=== PATIENT | male | born 1945 | race Caucasian/White ===

== ENCOUNTER → 2017-11-19 | Day surgery (SDC) | payer MEDICARE ==
[~2017-11-19] MED LIST: AMLO10; ASPI81TA82 PO; BUPIVACAINE/EPINEPHRINE 0.25% 50 ML VIAL INFIL ONE; CO Q100C9 PO; GABA100C4 PO; LACTATED RINGER'S 1000 ML INJ 1,000 ML ONE; LANTUSP SQ; LISI-363 PO; MIDAZOLAM HCL 2 MG/2 ML VIAL ONE; NOVOLOGP2 SC; PROPOFOL 200 MG/20 ML AMP IV ONE; SIMV40TA PO; SODIUM CHLORIDE 0.9% 20 ML VIAL ONE; TAB-TAB PO; VICT18IN; ceFAZolin 2 GM PREMIX 50 ML ONE
--- NOTE | 2017-11-19 20:37 | MP ---
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 PROCEDURE 1. Left subclavian vein Fjgnvs-R-[id number] placement. 2. Intraoperative interpretation of fluoroscopic images by . ATTENDING SURGEON: Nusrat Streeter MD. INSPECTOR CIRCUITRY NEGATIVE: Staff ANESTHESIA Local and TIVA. BLOOD LOSS: 20 cc COMPLICATIONS: None. FINDINGS Tip in the atriocaval junction with port aspirating blood and flushed with heparinized saline easily. INDICATIONS FOR PROCEDURE: The patient is a 72 year-old male recently diagnosed with adenocarcinoma of the head of the pancreas involving the superior mesenteric vein and portal veins, concerning for borderline resectability. There is also a large tumor. The patient was recommended to undergo neoadjuvant chemotherapy and radiation followed by consideration of surgery. The patient needs Nkjhtg-[id number] for continued treatment for his disease. The risks, benefits and alternatives to Jozuaa-U-Lwkg placement were discussed with the patient and his prior to the procedure. They agreed to undergo the procedure. DESCRIPTION OF PROCEDURE: The patient was taken to the operating room placed in supine position and placed under TIVA. The patient's bilateral chest and neck were prepped and draped in sterile fashion. Time-out was performed. The left subclavian vein was accessed on first attempt with the 18 gauge needle after the area was anesthetized with local anesthetic. A wire was passed without difficulty and was confirmed to be in the venous system on fluoroscopy. We then extended the stick site into a 2.5 cm horizontal skin incision with a 15 blade scalpel. We used the Bovie electrocautery as well as blunt dissection to make a subcutaneous pocket and to free up the wire into the incision. We then used a breakaway dilator and introducer, to introduce the catheter into the venous system without difficulty. This did pass across the right-sided venous system and into the right arm. As we attempted to pull the catheter back to redirect it down into the superior vena cava, the catheter tip had come out of the tract. We were unable to advance this so we did re-access the left subclavian vein a second time with the 18 gauge needle, passed the wire again without difficulty and advance the catheter over the wire without difficulty. This was confirmed that the tip was in the atriocaval junction. This was cut to custom size for the patient, assembled, and placed into the pocket without difficulty. We aspirated this with a Cid needle and blood returned readily and we flushed it with heparinized saline. At this point in time, again we confirmed fluoroscopy that the tip was in good position. There was no kinking. We closed the port site with 3-0 Vicryl and 4-0 Monocryl and Dermabond. The patient was discontinued from TIVA, anesthetic, and brought to the Recovery Room in stable condition. The patient tolerated the procedure well. No apparent complications. All counts were correct. I was present and scrubbed for the entire procedure. MD CRISTINE Branch/CINTHIA /11:41 AM /7:59 PM
== END | disposition home or self-care (01) ==
LOC: ESDC 08:45
PROVIDERS: ATTEND Surgery
DX: Z45.2 Encounter for adjustment and management of vascular access device (principal); C25.0 Malignant neoplasm of head of pancreas; E11.9 Type 2 diabetes mellitus without complications; Z79.4 Long term (current) use of insulin
CPT/HCPCS: 00532; 36561; 76000; 77001; 82948; C1788; J0690; J2250; J3010; J7120

== ENCOUNTER 2017-11-26 00:02 | Emergency (ER) | payer MEDICARE ==
[~2017-11-26] VITALS: Ht 182.9 cm; Wt 100.0 kg
[~2017-11-26 00:02] MED LIST changes: -BUPIVACAINE/EPINEPHRINE 0.25% 50 ML VIAL INFIL ONE; -LACTATED RINGER'S 1000 ML INJ 1,000 ML ONE; -MIDAZOLAM HCL 2 MG/2 ML VIAL ONE; -PROPOFOL 200 MG/20 ML AMP IV ONE; -SODIUM CHLORIDE 0.9% 20 ML VIAL ONE; -ceFAZolin 2 GM PREMIX 50 ML ONE
[2017-11-26 00:04] VITALS: BP 146/62; PULSE 90; RESP 16; TEMP 100.7; O2SAT 96
--- NOTE | 2017-11-26 00:49 | RADRPT ---
EXAM DATE/TIME: 11/26/2017 00:37 [facility] COMPARISON: No previous studies available for comparison. INDICATIONS : Fever. MEDICAL HISTORY : Carcinoma, pancreas. SURGICAL HISTORY : Port placement. ENCOUNTER: Initial ACUITY: 1 day PAIN SCORE: 0/10 LOCATION: Bilateral chest FINDINGS: A single view of the chest demonstrates the lungs to be symmetrically aerated without evidence of mas s, infiltrate or effusion. There is a right subclavian implantable port catheter in place. Mild athe rosclerotic calcifications are present in the aorta. The cardiomediastinal contours are unremarkable. Osseous structures are intact. CONCLUSION: No acute disease. There is no evidence of pneumonia. Vinny Sofia MD on November 26, 2017 at 0:47 Board Certified Radiologist. This report was verified electronically.
--- NOTE | 2017-11-26 00:51 | PD ---
HPI Chief Complaint: Fever Time Seen by Provider: 00:21 Travel History International Travel<30 days: No Contact w/Intl Traveler<30days: No Traveled to known affect area: No History of Present Illness HPI The patient is a 72 year old male who presents to the [facility] emergency department with a history of recently diagnosed pancreatic cancer a couple of weeks ago. The patient is currently being followed by for his oncology care. The patient reports that last Saturday he had an Tkdygk-d-Gtej placed in the left side of his chest, and started chemotherapy for the first time on Saturday. He reports that today began to have a fever with a T-max of 101.5. He denies having any other symptoms associated with this. He denies having cough, congestion, rhinorrhea, sore throat, vomiting, or diarrhea. The patient reports that he had been constipated for the last week. He reports that he was able to move his bowels today after using 2 fleets enemas yesterday and drinking magnesium citrate today. He denies having any dysuria, urinary frequency, or urinary urgency. He reports that his urine has been darker in color. Review of systems otherwise, the patient denies having neck pain, abdominal pain, or neurologic symptoms. The patient incidentally on review of systems reports that he did have chest pain for 20-30 minutes earlier today. He describes feeling anxious and feeling like he was having an anxiety attack. He reports that he had a squeezing/pressure sensation in the center of his chest associated with shortness of breath. He denies having any prior history of cardiac disease. [facility] Past Medical History Narrative Medical The patient's past medical history is significant for a recent diagnosis of pancreatic cancer, hyperlipidemia, hypertension, diabetes mellitus, chronic kidney disease, acid reflux, chronic back pain. Hx Anticoagulant Therapy: Yes (81MG ASA DAILY) Cancer: Yes (Pancreatic) High Cholesterol: Yes Diabetes: Yes (Insulin) Patient Takes Glucophage: No Diminished Hearing: No Hypertension: Yes Implanted Vascular Access Dvce: Yes (L chest port) Neurologic: Yes (NEUROPATHY) Tetanus Vaccination: < 5 Years Influenza Vaccination: No Past Surgical History Narrative Surgical The patient's past surgical history is significant for a tonsillectomy, Infuse-a -Port placement on the left side, left trapezius injection for pain, thyroid surgery, left knee arthroscopy, colonoscopy, and colonoscopy. Tonsillectomy: Yes Social History Alcohol Use: No Tobacco Use: No Substance Use: No Allergies-Medications (Allergen,Severity, Reaction): Coded Allergies: No Known Allergies (Unverified , 06/01/15) Reported Meds & Prescriptions Reported Meds & Active Scripts Active Levaquin (Levofloxacin) 500 Mg Tablet 500 Mg PO DAILY 7 Days Reported Co Q 10 (Coenzyme Q10) 100 Mg Cap 200 Mg PO DAILY Gabapentin 100 Mg Cap 100 Mg PO BID Norvasc (Amlodipine Besylate) 10 Mg Tab Victoza 18 mg/3 ml Multi-Dose Pen (Liraglutide 18 mg/3 ml Multi-Dose Pen) 18 Mg/3 Ml Inj 1.8 Mg DAILY Multivitamin (Multivitamins) 1 Tab Tab 1 Tab PO DAILY Aspir-81 (Aspirin) 81 Mg Tab 81 Mg PO DAILY Novolog (Insulin Aspart) 100 Units/Ml Inj 30 Units SC TIDAC Lantus (Insulin Glargine) 100 Units/Ml Inj 70 Units SQ HS Simvastatin 40 Mg Tab 20 Mg PO HS Lisinopril 20 mg (Lisinopril) 20 Mg Tab 20 Mg PO DAILY Review of Systems Except as stated in HPI: all other systems reviewed are Neg General / Constitutional: No: Fever Eyes: No: Visual changes HENT: No: Headaches Cardiovascular: No: Chest Pain or Discomfort Respiratory: No: Shortness of Breath Gastrointestinal: No: Abdominal Pain Genitourinary: No: Dysuria Musculoskeletal: No: Pain Skin: No Rash Neurologic: No: Weakness Psychiatric: No: Depression Endocrine: No: Polydipsia Hematologic/Lymphatic: No: Easy Bruising Physical Exam Narrative General: The patient is a well-developed well-nourished male in no acute distress. Head and Neck exam: Head is normocephalic atraumatic. Eyes: EOMI, pupils are equal round and reactive to light. Nose: Midline septum with pink mucous membranes Mouth: Dentition unremarkable. Moist mucus membranes. Posterior oropharynx is not erythematous. No tonsillar hypertrophy. Uvula midline. Airway patent. Neck: No palpable lymphadenopathy. No nuchal rigidity. No thyromegaly. Cardiovascular: Regular rate and rhythm without murmurs, gallops, or rubs. No pulse deficit to the extremities. Lungs: Clear to auscultation bilaterally. No wheezes, rhonchi, or rales. Abdomen: Soft, without tenderness to palpation in all 4 quadrants of the abdomen. No guarding, rebound, or rigidity. Normal bowel sounds are audible. No tenderness on palpation of McBurney's point. Negative Augustin sign. Extremities: No clubbing, cyanosis, or edema. 2+ pulses in all 4 extremities. No calf tenderness on palpation. Back: No spinous process tenderness to palpation. Left-sided CVA tenderness on palpation. No tenderness on palpation of the right CVA area. Neurologic Exam: Grossly nonfocal. Skin Exam: No rash noted. Intact skin that is warm and dry. Data Data Last Documented VS Vital Signs Date Time Temp Pulse Resp B/P (MAP) Pulse Ox O2 Delivery O2 Flow Rate FiO2 11/26/17 04:24 87 16 137/65 (89) 96 Room Air 11/26/17 00:04 100.7 Orders Orders Electrocardiogram (11/26/17:) Complete Blood Count With Diff (11/26/17) Comprehensive Metabolic Panel (11/26/17) Creatine Kinase (Cpk) (11/26/17) Ckmb (Isoenzyme) Profile (11/26/17) Troponin I (11/26/17) B-Type Natriuretic Peptide (11/26/17) Prothrombin Time / Inr (Pt) (11/26/17) Act Partial Throm Time (Ptt) (11/26/17) Blood Culture (11/26/17:) Lipase (11/26/17:) Urinalysis - C+S If Indicated (11/26/17) Magnesium (Mg) (11/26/17) Influenzae A/B Antigen (11/26/17:) Chest, Single Ap (11/26/17:) Iv Access Insert/Monitor (11/26/17) Ecg Monitoring (11/26/17) Oximetry (11/26/17) Sodium Chlor 0.9% 1000 Ml Inj (Ns 1000 M (11/26/17 01:00) Acetaminophen (Tylenol) (11/26/17 01:00) Lactic Acid Sepsis Protocol (11/26/17 01:34) Cefepime Inj (Maxipime Inj) (11/26/17 01:45) Vancomycin Inj (Vancomycin Inj) (11/26/17 01:45) Sodium Chlor 0.9% 1000 Ml Inj (Ns 1000 M (11/26/17 03:00) Labs Laboratory Tests Test 11/26/17 01:00 11/26/17 01:54 11/26/17 03:42 White Blood Count 13.7 TH/MM3 Red Blood Count 4.37 MIL/MM3 Hemoglobin 12.2 GM/DL Hematocrit 35.6 % Mean Corpuscular Volume 81.5 FL Mean Corpuscular Hemoglobin 27.9 PG Mean Corpuscular Hemoglobin Concent 34.3 % Red Cell Distribution Width 13.0 % Platelet Count 143 TH/MM3 Mean Platelet Volume 9.8 FL Neutrophils (%) (Auto) 88.9 % Lymphocytes (%) (Auto) 8.6 % Monocytes (%) (Auto) 0.8 % Eosinophils (%) (Auto) 1.3 % Basophils (%) (Auto) 0.4 % Neutrophils # (Auto) 12.1 TH/MM3 Lymphocytes # (Auto) 1.2 TH/MM3 Monocytes # (Auto) 0.1 TH/MM3 Eosinophils # (Auto) 0.2 TH/MM3 Basophils # (Auto) 0.1 TH/MM3 CBC Comment DIFF FINAL Differential Comment Prothrombin Time 10.5 SEC Prothromb Time International Ratio 1.0 RATIO Activated Partial Thromboplast Time 24.9 SEC Blood Urea Nitrogen 28 MG/DL Creatinine 1.56 MG/DL Random Glucose 163 MG/DL Total Protein 6.9 GM/DL Albumin 2.9 GM/DL Calcium Level 8.1 MG/DL Magnesium Level 2.3 MG/DL Alkaline Phosphatase 68 U/L Aspartate Amino Transf (AST/SGOT) 23 U/L Alanine Aminotransferase (ALT/SGPT) 27 U/L Total Bilirubin 0.7 MG/DL Sodium Level 135 MEQ/L Potassium Level 3.8 MEQ/L Chloride Level 100 MEQ/L Carbon Dioxide Level 28.2 MEQ/L Anion Gap 7 MEQ/L Estimat Glomerular Filtration Rate 44 ML/MIN Total Creatine Kinase 74 U/L Troponin I LESS THAN 0.02 NG/ML B-Type Natriuretic Peptide 86 PG/ML Lipase 438 U/L Lactic Acid Level 0.8 mmol/L Urine Color YELLOW Urine Turbidity HAZY Urine pH 6.0 Urine Specific [place] 1.019 Urine Protein 300 mg/dL Urine Glucose (UA) TRACE mg/dL Urine Ketones 10 mg/dL Urine Occult Blood SMALL Urine Nitrite NEG Urine Bilirubin NEG Urine Urobilinogen LESS THAN 2.0 MG/DL Urine Leukocyte Esterase NEG Urine RBC 3 /hpf Urine WBC 4 /hpf Urine Squamous Epithelial Cells <1 /hpf Urine Amorphous Sediment RARE Urine Bacteria RARE /hpf Urine Hyaline Casts 4 /lpf Urine Granular Casts 34 /lpf Urine Mucus FEW /lpf Microscopic Urinalysis Comment CULT NOT INDICATED MDM Medical Decision Making Medical Screen Exam Complete: Yes Emergency Medical Condition: Yes Medical Record Reviewed: Yes Interpretation(s) Last Impressions Chest X-Ray 11/26/17 0027 Signed Impressions: Service Date/Time: Sunday, November 26, 2017 00:37 - CONCLUSION: No acute disease. There is no evidence of pneumonia. Vinny Sofia MD Differential Diagnosis Pyelonephritis, versus musculoskeletal strain, versus viral syndrome, versus influenza, versus pneumonia, versus prostatitis, versus bacteremia, versus sepsis, versus neutropenic fever Narrative Course During the course of the patient's emergency department visit, the patient's history, examination, and differential diagnosis were reviewed with the patient. The patient was placed on a communications marketing intern with oximetry and frequent blood pressure monitoring. The patient had IV access obtained and blood work sent for analysis. The patient had an EKG done on arrival that shows a sinus rhythm with a sinus arrhythmia, left anterior fascicular block, QRS duration is 114 ms, QTC [address] segment elevation is noted. T waves are noted to be inverted in aVL. The patient was initially provided normal saline 1 L IV fluid bolus. Tylenol 650 p.o. 1 for fever. The patient's laboratory studies were reviewed and remarkable for a white count of 13.7, hemoglobin 12.2, platelets 143 with 88.9 neutrophils, lymphocytes 8.6. CMP is remarkable for a sodium of 135, BUN 28, creatinine 1.56, glucose 163, calcium 8.1, cardiac enzymes within normal limits, BMP 86, lipase 438, lactic acid 0.8, PT 10.5, PTT 24.9, urinalysis shows 300 protein 10 ketones small occult blood, 3 RBCs, culture not indicated. Radiology studies were reviewed and remarkable for a chest x-ray that shows no acute cardiopulmonary disease, no evidence of pneumonia. The patient's case was discussed with the covering oncologist for this patient' s oncologist. The patient's case including history, pertinent physical examination findings, and laboratory studies were discussed with Dr. Llamas. He agreed that the patient could be discharged home on Levaquin with close follow-up with his oncologist, Dr. Todd. The patient is resting comfortably and feels better, is alert and in no distress. The patient's results and examination findings were discussed with the patient. The repeat examination is unremarkable and benign. The history, exam, diagnostic testing, and current condition do not suggest any significant pathology to warrant further testing, continued ED treatment, admission, or surgical evaluation at this point. The vital signs have been stable. The patient does not have uncontrollable pain, intractable vomiting, or other significant symptoms. The patient's condition is stable and appropriate for discharge. The patient will pursue further outpatient evaluation with a primary care physician or other designated or consulting physician as indicated in the discharge instructions. The patient expressed understanding and was agreeable with this plan. Sepsis Criteria SIRS Criteria (2 or more): Heart rate over 90 Diagnosis Primary Impression: Febrile illness Additional Impression: Immunocompromised state Referrals: Anjelica Todd MD 1 day Patient Instructions: Fever in Adults (ED), General Instructions Scripts Levofloxacin (Levaquin) 500 Mg Tablet 500 MG PO DAILY for Infection for 7 Days, #7 TAB 0 Refills Prov: Flaca Werner MD 11/26/17 Disposition: 01 DISCHARGE HOME Condition: Stable Flaca Werner MD Nov 26, 2017 00:50
[2017-11-26] MEDS ORDERED: ACETAMINOPHEN 325 MG TAB PO ONE (01:00)
[2017-11-26] MEDS ORDERED: SODIUM CHLOR 0.9% 1000 ML INJ 1,000 ML IV ONE ×2 (01:00→03:00)
[2017-11-26 01:06] VITALS: O2SAT 96
[2017-11-26 01:19] VITALS: BP 141/62; PULSE 101; RESP 16; O2SAT 94
[2017-11-26 01:22] LABS: AUTOMATED NEUTROPHIL # 12.1 TH/MM3 (1.8-7.7); BASOPHIL # 0.1 TH/MM3 (0-0.2); BASOPHIL % 0.4 % (0.0-2.0); EOSINOPHIL # 0.2 TH/MM3 (0-0.4); EOSINOPHIL % 1.3 % (0.0-4.0); HEMATOCRIT 35.6 % (39.0-51.0); HEMOGLOBIN 12.2 GM/DL (13.0-17.0); LYMPH % 8.6 % (9.0-44.0); LYMPHOCYTE # 1.2 TH/MM3 (1.0-4.8); MEAN CELL VOLUME 81.5 FL (80.0-100.0); MEAN CORPUSCULAR HEMOGLOBIN 27.9 PG (27.0-34.0); MEAN CORPUSCULAR HGB CONC 34.3 % (32.0-36.0); MEAN PLATELET VOLUME 9.8 FL (7.0-11.0); MONO % 0.8 % (0.0-8.0); MONOCYTE # 0.1 TH/MM3 (0-0.9); NEUT % 88.9 % (16.0-70.0); PLATELET COUNT 143 TH/MM3 (150-450); RED BLOOD COUNT 4.37 MIL/MM3 (4.50-5.90); WHITE BLOOD COUNT 13.7 TH/MM3 (4.0-11.0)
[2017-11-26 01:33] LABS: ALBUMIN 2.9 GM/DL (3.4-5.0); ALT (GPT) 27 U/L (12-78); AST (GOT) 23 U/L (15-37); BICARBONATE 28.2 MEQ/L (21.0-32.0); BLOOD UREA NITROGEN 28 MG/DL (7-18); CALCIUM 8.1 MG/DL (8.5-10.1); CHLORIDE 100 MEQ/L (98-107); CREATININE 1.56 MG/DL (0.60-1.30); GLOMERULAR FILTRATION RATE 44 ML/MIN (>89); GLUCOSE,RANDOM 163 MG/DL (74-106); MAGNESIUM 2.3 MG/DL (1.5-2.5); SODIUM (NA) 135 MEQ/L (136-145)
[2017-11-26 01:34] LABS: PROTHROMBIN TIME - PATIENT 10.5 SEC (9.8-11.6)
[2017-11-26 01:36] LABS: ALKALINE PHOSPHATASE 68 U/L (45-117); TOTAL BILIRUBIN ADULT 0.7 MG/DL (0.2-1.0); TOTAL PROTEIN 6.9 GM/DL (6.4-8.2); TROPONIN I LESS THAN 0.02 NG/ML (0.02-0.05)
[2017-11-26] MEDS ORDERED: CEFEPIME INJ 2,000 MG in SODIUM CHLORIDE 0.9% INJ 100 ML IV ONE (01:45)
[2017-11-26] MEDS ORDERED: VANCOMYCIN INJ 1,000 MG in SODIUM CHLOR 0.9% 250 ML INJ 250 ML IV ONE (01:45)
[2017-11-26 03:57] LABS: AMORPHOUS SEDIMENT, URINE RARE; BACTERIA, URINE RARE /hpf; BILIRUBIN, URINE NEG (NEG); BLOOD, URINE SMALL (NEG); GLUCOSE,URINE TRACE mg/dL (NEG); HYALINE CAST, URINE 4 /lpf (RARE); KETONE, URINE 10 mg/dL (NEG); MUCUS URINE FEW /lpf (OCC); NITRITE,URINE NEG (NEG); SQUAMOUS EPITHELIAL CELL URINE <1 /hpf (0-5); URINE COLOR YELLOW (YELLW/STRAW); URINE LEUKOCYTE ESTERASE NEG (NEG)
[2017-11-26 04:24] VITALS: BP 137/65; PULSE 87; RESP 16; O2SAT 96
[2017-11-26] MEDS ORDERED: LEVA500T33 PO (04:41)
--- NOTE | 2017-11-26 18:54 | EKG ---
Date Performed: 11/26/2017 Time Performed: 00:47:08 PTAGE: 72 years EKG: Sinus rhythm WITH SINUS ARRHYTHMIA LEFT ANTERIOR FASCICULAR BLOCK ABNORMAL ECG Since the prior tracing, there has been no significant change PREVIOUS TRACING : 06/20/2007 07.49 DOCTOR: Karon Jay Interpretating Date/Time 11/26/2017 18:48:46
== END 2017-11-26 05:13 | disposition home or self-care (01) ==
LOC: NEPE 00:02
DX: C25.9 Malignant neoplasm of pancreas, unspecified (principal); I12.9 Hypertensive chronic kidney disease with stage 1 through stage 4 chronic kidney disease, or unspecified chronic kidney disease; E11.22 Type 2 diabetes mellitus with diabetic chronic kidney disease; N18.9 Chronic kidney disease, unspecified; E78.00 Pure hypercholesterolemia, unspecified; R06.02 Shortness of breath; Z79.4 Long term (current) use of insulin
CPT/HCPCS: 71045; 80053; 81001; 82550; 83605; 83690; 83735; 83880; 84484; 85025; 85610; 85730; 87040; 87804; 93005; 96361; 96365; 96367; 99285; J0692; J1642; J3370; J7030; J7050

== ENCOUNTER 2018-02-17 14:26 | Inpatient (IN) | payer MEDICARE ==
[~2018-02-17] VITALS: Ht 182.9 cm; Wt 100.0 kg
[~2018-02-17 14:26] MED LIST changes: +LEVA500T33 PO
[2018-02-17 14:40] VITALS: BP 180/74; PULSE 80; RESP 24; TEMP 98.4; O2SAT 98
[2018-02-17] MEDS ORDERED: GABA100C4 PO (15:03)
[2018-02-17] MEDS ORDERED: BYST10TA2 PO (15:03)
[2018-02-17] MEDS ORDERED: LORA0.5T PO (15:03)
[2018-02-17] MEDS ORDERED: KRIL500C2 PO (15:03)
[2018-02-17] MEDS ORDERED: LISI40TA PO (15:03)
[2018-02-17] MEDS ORDERED: PROC10TA PO (15:03)
[2018-02-17] MEDS ORDERED: [UNRECOGNIZED DRUG - CODE] (15:03)
[2018-02-17] MEDS ORDERED: MUPI2OIN TOPICAL (15:03)
[2018-02-17] MEDS ORDERED: ONDA8TAB7 PO (15:03)
[2018-02-17] MEDS ORDERED: PANC3600 PO (15:03)
[2018-02-17] MEDS ORDERED: SIMV20TA PO (15:03)
[2018-02-17] MEDS ORDERED: LANTINJ SQ (15:03)
[2018-02-17] MEDS ORDERED: PACLPB100P (15:03)
[2018-02-17] MEDS ORDERED: CO Q10CA PO (15:03)
[2018-02-17] MEDS ORDERED: ASPI1TAB57 PO (15:03)
[2018-02-17] MEDS ORDERED: RANI150T PO (15:03)
[2018-02-17] MEDS ORDERED: HUMALOG SQ (15:03)
[2018-02-17] MEDS ORDERED: MAPA500T PO (15:03)
[2018-02-17] MEDS ORDERED: VITA100064 PO (15:03)
--- NOTE | 2018-02-17 15:29 | PD ---
HPI Chief Complaint: Respiratory Symptoms Time Seen by Provider: 15:02 Travel History International Travel<30 days: No Contact w/Intl Traveler<30days: No Traveled to known affect area: No History of Present Illness HPI Patient was sent by physician to rule out PE due to shortness of breath 4 days a history of pancreatic cancer patient states that the shortness of breath started Saturday night. Reporting dry cough, lower extremity edema secondary to kidney disease, rhinorrhea, fever with a temp of 100.4 on yesterday (states that they were told a chemo med causes fever as he's had such in the past). He denies chest pain, nausea, vomiting, chills, or recent travel. Last chemo on . History Social History Alcohol Use: No Tobacco Use: No Allergies-Medications (Allergen,Severity, Reaction): Coded Allergies: No Known Allergies (Unverified Allergy, Unknown, 02/17/18) Reported Meds & Prescriptions Reported Meds & Active Scripts Active Reported Abraxane Inj (Paclitaxel/Albumin) 100 Mg Inj Gemcitabine Inj 200 Mg/5.26 Ml (38 Mg/Ml) Inj Lorazepam 0.5 Mg Tab 0.5 Mg PO BID PRN Creon (Pancrelipase) 36,000-114,000-180,000 Units Cap 1 Cap PO TIDPC Prochlorperazine Maleate 10 Mg Tab 10 Mg PO Q6H PRN Ondansetron (Ondansetron HCl) 8 Mg Tab 8 Mg PO TID Aspirin 81 (Aspirin) 81 Mg Tabdr 81 Mg PO DAILY Krill Oil 500 Mg Capsule 350 Mg PO DAILY Mupirocin Topical (Mupirocin) 2 % Oint 1 Applic TOPICAL BID Lisinopril 40 Mg Tab 40 Mg PO DAILY Simvastatin 20 Mg Tab 20 Mg PO DAILY Humalog Inj (Insulin Human Lispro) 1,000 Unit/10 Ml Vial 25-30 Units SQ ACHS Max dose at bedtime:( )units; sugars < 70,(0)units; sugars 150-199,(5)units; sugars 200-249,(10)units; sugars 250-299,(15)units; sugars 300-349,(20)units; sugars more than 349,(25)units. Lantus Solostar Pen Inj (Insulin Glargine) 300 Unit/3 Ml Pen 30-40 Units SQ DAILY Ranitidine (Ranitidine HCl) 150 Mg Tab 150 Mg PO BID Vitamin D3 (Cholecalciferol) 1,000 Unit Tab 2,000 Units PO DAILY Mapap (Acetaminophen) 500 Mg Tab 500 Mg PO BID Co Q 10 (Coenzyme Q10 (Ubidecarenone)) 10 Mg Cap 10 Mg PO DAILY Gabapentin 100 Mg Cap 100 Mg PO BID Bystolic (Nebivolol) 10 Mg Tab 10 Mg PO DAILY Review of Systems Except as stated in HPI: all other systems reviewed are Neg Physical Exam Narrative GENERAL: No acute distress. SKIN: Focused skin assessment warm/dry. HEAD: Atraumatic. Normocephalic. EYES: Pupils equal and round. No scleral icterus. No injection or drainage. ENT: No nasal bleeding or discharge. Mucous membranes pink and moist. NECK: Trachea midline. No JVD. CARDIOVASCULAR: Regular rate and rhythm. murmur appreciated. RESPIRATORY: No accessory muscle use. Clear to auscultation. Breath sounds equal bilaterally. GASTROINTESTINAL: Abdomen soft, epigastric abdominal tenderness, nondistended. Hepatic and splenic margins not palpable. MUSCULOSKELETAL: No obvious deformities. No clubbing. No cyanosis. Positive bilateral lower extremity pitting edema NEUROLOGICAL: Awake and alert. No obvious cranial nerve deficits. Motor grossly within normal limits. Normal speech. PSYCHIATRIC: Appropriate mood and affect; insight and judgment normal. Data Data Last Documented VS Vital Signs Date Time Temp Pulse Resp B/P (MAP) Pulse Ox O2 Delivery O2 Flow Rate FiO2 02/17/18 17:26 80 18 189/78 (115) 98 Room Air 02/17/18 16:48 21 02/17/18 14:40 98.4 Orders Orders Complete Blood Count With Diff (02/17/18 15:16) Comprehensive Metabolic Panel (02/17/18 15:16) B-Type Natriuretic Peptide (02/17/18 15:16) D-Dimer (02/17/18 15:16) Act Partial Throm Time (Ptt) (02/17/18 15:16) Prothrombin Time / Inr (Pt) (02/17/18 15:16) Magnesium (Mg) (02/17/18 15:16) Ckmb (Isoenzyme) Profile (02/17/18 15:16) Troponin I (02/17/18 15:16) Urinalysis - C+S If Indicated (02/17/18 15:16) Iv Access Insert/Monitor (02/17/18 15:16) Electrocardiogram (02/17/18 15:16) Ecg Monitoring (02/17/18 15:16) Oximetry (02/17/18 15:16) Chest, Pa & Lat (02/17/18 15:16) Sodium Chloride 0.9% Flush (Ns Flush) (02/17/18 15:30) Blood Culture (02/17/18 16:12) Azithromycin (Zithromax) (02/17/18 16:15) Ceftriaxone Inj (Rocephin Inj) (02/17/18 16:15) Ventilation & Perfusion Scan (02/17/18 16:50) Sodium Chlor 0.9% 1000 Ml Inj (Ns 1000 M (02/17/18 17:15) Admit Order (Ed Use Only) (02/17/18 17:32) Admit To Inpatient (02/17/18 ) Vital Signs (Adult) Q4H (02/17/18 17:39) Activity Oob With Assistance (02/17/18 17:39) Sodium Chloride 0.9% Flush (Ns Flush) (02/17/18 17:45) Sodium Chloride 0.9% Flush (Ns Flush) (02/17/18 21:00) Acetaminophen (Tylenol) (02/17/18 17:45) Resp Oxygen David C Titrat 1-4 L (02/17/18 ) Enoxaparin Inj (Lovenox Inj) (02/17/18 20:00) Naloxone Inj (Narcan Inj) (02/17/18 17:45) Magnesium Hydroxide Liq (Milk Of Magnesi (02/17/18 17:45) Sennosides (Senokot) (02/17/18 17:45) Bisacodyl Supp (Dulcolax Supp) (02/17/18 17:45) Lactulose Liq (Lactulose Liq) (02/17/18 17:45) Inpatient Certification (02/17/18 ) Oxycodone-Acetamin 7.5-325 Mg (Percocet (02/17/18 17:45) Morphine Inj (Morphine Inj) (02/17/18 17:45) Labs Laboratory Tests Test 02/17/18 15:00 02/17/18 16:55 White Blood Count 11.5 TH/MM3 Red Blood Count 2.68 MIL/MM3 Hemoglobin 8.6 GM/DL Hematocrit 25.8 % Mean Corpuscular Volume 96.3 FL Mean Corpuscular Hemoglobin 32.0 PG Mean Corpuscular Hemoglobin Concent 33.2 % Red Cell Distribution Width 19.3 % Platelet Count 120 TH/MM3 Mean Platelet Volume 10.8 FL Neutrophils (%) (Auto) 94.3 % Lymphocytes (%) (Auto) 4.5 % Monocytes (%) (Auto) 0.8 % Eosinophils (%) (Auto) 0.2 % Basophils (%) (Auto) 0.2 % Neutrophils # (Auto) 10.8 TH/MM3 Lymphocytes # (Auto) 0.5 TH/MM3 Monocytes # (Auto) 0.1 TH/MM3 Eosinophils # (Auto) 0.0 TH/MM3 Basophils # (Auto) 0.0 TH/MM3 CBC Comment DIFF FINAL Differential Comment Prothrombin Time 11.3 SEC Prothromb Time International Ratio 1.1 RATIO Activated Partial Thromboplast Time 31.0 SEC D-Dimer Quantitative (PE/DVT) 6.66 MG/L FEU Blood Urea Nitrogen 51 MG/DL Creatinine 2.49 MG/DL Random Glucose 274 MG/DL Total Protein 5.7 GM/DL Albumin 2.0 GM/DL Calcium Level 8.0 MG/DL Magnesium Level 2.1 MG/DL Alkaline Phosphatase 95 U/L Aspartate Amino Transf (AST/SGOT) 36 U/L Alanine Aminotransferase (ALT/SGPT) 24 U/L Total Bilirubin 1.0 MG/DL Sodium Level 136 MEQ/L Potassium Level 4.3 MEQ/L Chloride Level 104 MEQ/L Carbon Dioxide Level 19.5 MEQ/L Anion Gap 13 MEQ/L Estimat Glomerular Filtration Rate 26 ML/MIN Total Creatine Kinase 64 U/L Troponin I LESS THAN 0.02 NG/ML B-Type Natriuretic Peptide 230 PG/ML Urine Color YELLOW Urine Turbidity HAZY Urine pH 6.0 Urine Specific [place] 1.017 Urine Protein 300 mg/dL Urine Glucose (UA) 300 mg/dL Urine Ketones 10 mg/dL Urine Occult Blood MOD Urine Nitrite NEG Urine Bilirubin NEG Urine Urobilinogen LESS THAN 2.0 MG/DL Urine Leukocyte Esterase NEG Urine RBC 12 /hpf Urine WBC 2 /hpf Urine Squamous Epithelial Cells 1 /hpf Urine Amorphous Sediment RARE Urine Hyaline Casts 3 /lpf Urine Mucus FEW /lpf Microscopic Urinalysis Comment CULT NOT INDICATED MDM Medical Decision Making Medical Screen Exam Complete: Yes Emergency Medical Condition: Yes Interpretation(s) Labs: Elevated WBC count, decreased hemoglobin/hematocrit/platelet ECG: Sinus rhythm, rate 80, left axis deviation, Last Impressions Chest X-Ray 02/17/18 1516 Signed Impressions: Service Date/Time: Saturday, February 17, 2018 15:29 - CONCLUSION: 1. Interval development of left-sided pleural effusion and consolidation at the left lung base. Javier Garrison MD Differential Diagnosis PE, pneumonia, pulmonary edema, CHF, pleural effusion Narrative Course Patient presents to the emergency department shortness of breath. We will check CBC, chemistry, cardiac enzymes, coags and d-dimer, chest x-ray, EKG. 1611: Patient has an elevated white count and chest x-ray with consolidation and effusion. Given a gram of 1 gram Rocephin and 500 mg Zithromax. Also will check blood cultures. 1848: Patient had VQ scan and is pending at this time. Admit team to follow. Diagnosis Primary Impression: Pneumonia Qualified Codes: J18.1 - Lobar pneumonia, unspecified organism Additional Impression: Pleural effusion associated with pulmonary infection Admitting Information Admitting Physician Requests: Admit Condition: Stable Mariajose Harrell MD February 17, 2018 15:29
[2018-02-17] MEDS ORDERED: SODIUM CHLORIDE 0.9% FLUSH 10 ML FLUSH IVF PRN (15:30)
--- NOTE | 2018-02-17 15:43 | RADRPT ---
EXAM DATE/TIME: 02/17/2018 15:29 [facility] COMPARISON: CHEST SINGLE AP, November 26, 2017, 0:37. INDICATIONS : Short of breath, difficulty exhaling MEDICAL HISTORY : Carcinoma, pancreas. chemo SURGICAL HISTORY : infusaport ENCOUNTER: Initial ACUITY: 1 day PAIN SCORE: 0/10 LOCATION: Bilateral chest FINDINGS: There is a left-sided pleural effusion. This is new when compared to previous study dated 11/26/17. The [id number] into position. The heart is at the upper limits of normal in size. The right lung i s clear. CONCLUSION: 1. Interval development of left-sided pleural effusion and consolidation at the left lung base. Javier Garrison MD on February 17, 2018 at 15:40 Board Certified Radiologist. This report was verified electronically.
[2018-02-17 15:51] LABS: AUTOMATED NEUTROPHIL # 10.8 TH/MM3 (1.8-7.7); BASOPHIL % 0.2 % (0.0-2.0); EOSINOPHIL % 0.2 % (0.0-4.0); HEMATOCRIT 25.8 % (39.0-51.0); HEMOGLOBIN 8.6 GM/DL (13.0-17.0); LYMPH % 4.5 % (9.0-44.0); LYMPHOCYTE # 0.5 TH/MM3 (1.0-4.8); MEAN CELL VOLUME 96.3 FL (80.0-100.0); MEAN CORPUSCULAR HGB CONC 33.2 % (32.0-36.0); MEAN PLATELET VOLUME 10.8 FL (7.0-11.0); MONO % 0.8 % (0.0-8.0); MONOCYTE # 0.1 TH/MM3 (0-0.9); NEUT % 94.3 % (16.0-70.0); PLATELET COUNT 120 TH/MM3 (150-450); RED BLOOD COUNT 2.68 MIL/MM3 (4.50-5.90); RED CELL DISTRIBUTION WIDTH 19.3 % (11.6-17.2); WHITE BLOOD COUNT 11.5 TH/MM3 (4.0-11.0)
[2018-02-17] MEDS ORDERED: cefTRIAXone INJ 1,000 MG in SODIUM CHLORIDE 0.9% INJ 100 ML IV ONE (16:15)
[2018-02-17] MEDS ORDERED: AZITHROMYCIN 250 MG TAB PO ONE (16:15)
[2018-02-17 16:20] LABS: INTERNATIONAL NORMALIZED RATIO 1.1 RATIO; PROTHROMBIN TIME - PATIENT 11.3 SEC (9.8-11.6)
[2018-02-17 16:23] LABS: D-DIMER 6.66 MG/L FEU (0.00-0.50)
[2018-02-17 16:48] VITALS: BP 189/78; PULSE 80; RESP 18; O2SAT 100
[2018-02-17 16:54] LABS: BLOOD UREA NITROGEN 51 MG/DL (7-18); CREATININE 2.49 MG/DL (0.60-1.30); GLOMERULAR FILTRATION RATE 26 ML/MIN (>89); GLUCOSE,RANDOM 274 MG/DL (74-106); TOTAL PROTEIN 5.7 GM/DL (6.4-8.2)
[2018-02-17 16:55] LABS: ALKALINE PHOSPHATASE 95 U/L (45-117); ALT (GPT) 24 U/L (12-78); AST (GOT) 36 U/L (15-37); BICARBONATE 19.5 MEQ/L (21.0-32.0); CHLORIDE 104 MEQ/L (98-107); MAGNESIUM 2.1 MG/DL (1.5-2.5); SODIUM (NA) 136 MEQ/L (136-145)
[2018-02-17 16:56] LABS: TROPONIN I LESS THAN 0.02 NG/ML (0.02-0.05)
[2018-02-17 17:10] LABS: AMORPHOUS SEDIMENT, URINE RARE; BILIRUBIN, URINE NEG (NEG); BLOOD, URINE MOD (NEG); GLUCOSE,URINE 300 mg/dL (NEG); HYALINE CAST, URINE 3 /lpf (RARE); KETONE, URINE 10 mg/dL (NEG); MUCUS URINE FEW /lpf (OCC); NITRITE,URINE NEG (NEG); SQUAMOUS EPITHELIAL CELL URINE 1 /hpf (0-5); URINE COLOR YELLOW (YELLW/STRAW); URINE LEUKOCYTE ESTERASE NEG (NEG)
[2018-02-17] MEDS ORDERED: SODIUM CHLOR 0.9% 1000 ML INJ 1,000 ML IV ONE (17:15)
[2018-02-17 17:26] VITALS: BP 189/78; PULSE 80; RESP 18; O2SAT 98
[2018-02-17] MEDS ORDERED: ACETAMINOPHEN 325 MG TAB PO PRN (17:45)
[2018-02-17] MEDS ORDERED: NALOXONE HCL 0.4 MG/ML AMP IV PUSH PRN (17:45)
[2018-02-17] MEDS ORDERED: LACTULOSE SYRUP 20 GM/30 ML CUP PO PRN (17:45)
[2018-02-17] MEDS ORDERED: SENNOSIDES 8.6 MG TAB PO PRN (17:45)
[2018-02-17] MEDS ORDERED: BISACODYL 10 MG SUPP RECTAL PRN (17:45)
[2018-02-17] MEDS ORDERED: MAGNESIUM HYDROXIDE SUSP 30 ML CUP PO PRN (17:45)
[2018-02-17] MEDS ORDERED: SODIUM CHLORIDE 0.9% FLUSH 10 ML FLUSH IV FLUSH PRN (17:45)
[2018-02-17] MEDS ORDERED: MORPHINE SULFATE 4 MG/ML INJ IV PUSH PRN (17:45)
[2018-02-17] MEDS ORDERED: oxyCODONE/ACETAMINOPHEN 7.5 MG/325 MG TAB PO PRN (17:45)
[2018-02-17 17:48] VITALS: O2SAT 99
[2018-02-17] MEDS ORDERED: ONDANSETRON ODT 4 MG TAB PO PRN (18:15)
[2018-02-17] MEDS ORDERED: VANCOMYCIN INJ 1,000 MG in SODIUM CHLOR 0.9% 250 ML INJ 250 ML IV ONE (18:15)
--- NOTE | 2018-02-17 19:26 | RADRPT ---
EXAM DATE/TIME: 02/17/2018 18:17 [facility] COMPARISON: CHEST PA & LAT, February 17, 2018, 15:29. INDICATIONS : Dyspnea x 4 days. DOSE: 1.1 mCi Tc99m DTPA 8.8 mCi Tc99m MAA MEDICAL HISTORY : Carcinoma, pancreas. Chemo. SURGICAL HISTORY : Total knee replacement, left. ENCOUNTER: Subsequent ACUITY: 4 - 6 days PAIN SCALE: 0/10 LOCATION: Bilateral chest TECHNIQUE: Following five minutes of tidal breathing of DTPA aerosol, planar images of the lungs were performed in eight projections. The patient was then injected with MAA, and eight-view perfusion scan was perf ormed. FINDINGS: There is diminished ventilation and perfusion involving the left lung base correlating with an effusi on noted on the chest x-ray. As such, this is strictly in indeterminate scan. Elsewhere, perfusion is homogeneous and intact with no other defects identified. CONCLUSION: Indeterminate scan for pulmonary embolism Tad Pritchard MD on February 17, 2018 at 19:21 Board Certified Radiologist. This report was verified electronically.
[2018-02-17 20:00] VITALS: BP 186/86; PULSE 82; RESP 22; TEMP 97.4; O2SAT 96
[2018-02-17] MEDS ORDERED: ENOXAPARIN SODIUM 40 MG/0.4 ML SYRINGE SQ SCH (20:00)
[2018-02-17] MEDS ORDERED: GLUCAGON 1 MG/ML VIAL OTHER PRN (20:15)
[2018-02-17] MEDS ORDERED: DEXTROSE 50% IN WATER 50 ML VIAL(D50) IV PUSH PRN (20:15)
[2018-02-17] MEDS ORDERED: LORazepam 0.5 MG TAB PO PRN (20:15)
[2018-02-17 22:15] VITALS: BP 162/62
[2018-02-17] MEDS: FAMOTIDINE 20 MG TAB PO SCH (22:38)
[2018-02-17] MEDS: GABAPENTIN 100 MG CAP PO SCH (22:39)
[2018-02-17] MEDS: INSULIN DETEMIR 100 UNITS/ML VIAL SQ SCH (22:41)
[2018-02-17] MEDS: INSULIN ASPART SUPPLEMENTAL SCALE SQ SCH (22:41)
[2018-02-17] MEDS: SODIUM CHLORIDE 0.9% FLUSH 10 ML FLUSH IV FLUSH SCH (22:43)
[2018-02-18] VITALS: BP 162/70; PULSE 86; RESP 18; TEMP 100.3; O2SAT 93
--- NOTE | 2018-02-18 00:45 | HHI.HP ---
HPI Service [facility] Primary Care Physician Kelly North MD Admission Diagnosis pancreatic cancer, pleural effusion, chest pain Diagnoses: Travel History International Travel<30 Days: No Contact w/Intl Traveler <30 Da: No Traveled to Known Affected Are: No History of Present Illness 72-year-old male with a past medical history significant for pancreatic cancer, diabetes mellitus, chronic kidney disease stage III, hypertension and hyperlipidemia presents the emergency department for evaluation of shortness of breath. The patient's last chemotherapy was done last . He reports that either later that night or early Saturday he began to have significant shortness of breath that has progressively worsened. The patient reports that the shortness of breath is worse when he lies flat or when he exerts himself. He also endorses significant fatigue since . He has a history of anemia requiring blood transfusions with last transfusion being approximately 2 weeks ago. Patient also endorses a nonproductive cough. He denies any chest pain. He complains of bilateral lower extremity edema. No abdominal pain. No nausea/vomiting/diarrhea but does endorse a chronic anorexia. No lateralizing signs/symptoms. Review of Systems Except as stated in HPI: all other systems reviewed are Neg Past Family Social History Past Medical History Pancreatic cancer Diabetes mellitus Chronic kidney disease stage III Hypertension Hyperlipidemia Neuropathy Past Surgical History Port placement Left knee arthroscopically Tonsillectomy Reported Medications Reported Meds & Active Scripts Active Reported Abraxane Inj (Paclitaxel/Albumin) 100 Mg Inj Gemcitabine Inj 200 Mg/5.26 Ml (38 Mg/Ml) Inj Lorazepam 0.5 Mg Tab 0.5 Mg PO BID PRN Creon (Pancrelipase) 36,000-114,000-180,000 Units Cap 1 Cap PO TIDPC Prochlorperazine Maleate 10 Mg Tab 10 Mg PO Q6H PRN Ondansetron (Ondansetron HCl) 8 Mg Tab 8 Mg PO TID Aspirin 81 (Aspirin) 81 Mg Tabdr 81 Mg PO DAILY Krill Oil 500 Mg Capsule 350 Mg PO DAILY Mupirocin Topical (Mupirocin) 2 % Oint 1 Applic TOPICAL BID Lisinopril 40 Mg Tab 40 Mg PO DAILY Simvastatin 20 Mg Tab 20 Mg PO DAILY Humalog Inj (Insulin Human Lispro) 1,000 Unit/10 Ml Vial 25-30 Units SQ ACHS Max dose at bedtime:( )units; sugars < 70,(0)units; sugars 150-199,(5)units; sugars 200-249,(10)units; sugars 250-299,(15)units; sugars 300-349,(20)units; sugars more than 349,(25)units. Lantus Solostar Pen Inj (Insulin Glargine) 300 Unit/3 Ml Pen 30-40 Units SQ DAILY Ranitidine (Ranitidine HCl) 150 Mg Tab 150 Mg PO BID Vitamin D3 (Cholecalciferol) 1,000 Unit Tab 2,000 Units PO DAILY Mapap (Acetaminophen) 500 Mg Tab 500 Mg PO BID Co Q 10 (Coenzyme Q10 (Ubidecarenone)) 10 Mg Cap 10 Mg PO DAILY Gabapentin 100 Mg Cap 100 Mg PO BID Bystolic (Nebivolol) 10 Mg Tab 10 Mg PO DAILY Allergies: Coded Allergies: No Known Allergies (Unverified Allergy, Unknown, 02/17/18) Family History Both parents with diabetes mellitus Social History Quit tobacco 6 years ago. Denies alcohol and illicit drugs. Physical Exam Vital Signs Vital Signs Date Time Temp Pulse Resp B/P (MAP) Pulse Ox O2 Delivery O2 Flow Rate FiO2 02/17/18 20:00 97.4 82 22 186/86 (119) 96 02/17/18 17:48 99 21 02/17/18 17:26 80 18 189/78 (115) 98 Room Air 02/17/18 16:48 80 18 189/78 (115) 100 Room Air 21 02/17/18 14:51 98 02/17/18 14:40 98.4 80 24 180/74 (109) 98 Physical Exam GENERAL: male sitting up in bed SKIN: No rashes, ecchymoses or lesions. Cool and dry. HEAD: Atraumatic. Normocephalic. No temporal or scalp tenderness. EYES: Pupils equal round and reactive. Extraocular motions intact. No scleral icterus. No injection or drainage. ENT: Nose without bleeding, purulent drainage or septal hematoma. Throat without erythema, tonsillar hypertrophy or exudate. Uvula midline. Airway patent. NECK: Trachea midline. No JVD or lymphadenopathy. Supple, nontender, no meningeal signs. CARDIOVASCULAR: Regular rate and rhythm without murmurs, gallops, or rubs. RESPIRATORY: Clear to auscultation. Breath sounds equal bilaterally. No wheezes , rales, or rhonchi. GASTROINTESTINAL: Abdomen soft, non-tender, nondistended. No hepato-splenomegaly , or palpable masses. No guarding. MUSCULOSKELETAL: 2+ pitting edema in the bilateral lower extremities NEUROLOGICAL: Awake and alert. Cranial nerves II through XII intact. Motor and sensory grossly within normal limits. Normal speech. Laboratory Laboratory Tests Test 02/17/18 15:00 02/17/18 16:55 White Blood Count 11.5 Red Blood Count 2.68 Hemoglobin 8.6 Hematocrit 25.8 Mean Corpuscular Volume 96.3 Mean Corpuscular Hemoglobin 32.0 Mean Corpuscular Hemoglobin Concent 33.2 Red Cell Distribution Width 19.3 Platelet Count 120 Mean Platelet Volume 10.8 Neutrophils (%) (Auto) 94.3 Lymphocytes (%) (Auto) 4.5 Monocytes (%) (Auto) 0.8 Eosinophils (%) (Auto) 0.2 Basophils (%) (Auto) 0.2 Neutrophils # (Auto) 10.8 Lymphocytes # (Auto) 0.5 Monocytes # (Auto) 0.1 Eosinophils # (Auto) 0.0 Basophils # (Auto) 0.0 CBC Comment DIFF FINAL Differential Comment Prothrombin Time 11.3 Prothromb Time International Ratio 1.1 Activated Partial Thromboplast Time 31.0 D-Dimer Quantitative (PE/DVT) 6.66 Blood Urea Nitrogen 51 Creatinine 2.49 Random Glucose 274 Total Protein 5.7 Albumin 2.0 Calcium Level 8.0 Magnesium Level 2.1 Alkaline Phosphatase 95 Aspartate Amino Transf (AST/SGOT) 36 Alanine Aminotransferase (ALT/SGPT) 24 Total Bilirubin 1.0 Sodium Level 136 Potassium Level 4.3 Chloride Level 104 Carbon Dioxide Level 19.5 Anion Gap 13 Estimat Glomerular Filtration Rate 26 Total Creatine Kinase 64 Troponin I LESS THAN 0.02 B-Type Natriuretic Peptide 230 Urine Color YELLOW Urine Turbidity HAZY Urine pH 6.0 Urine Specific [place] 1.017 Urine Protein 300 Urine Glucose (UA) 300 Urine Ketones 10 Urine Occult Blood MOD Urine Nitrite NEG Urine Bilirubin NEG Urine Urobilinogen LESS THAN 2.0 Urine Leukocyte Esterase NEG Urine RBC 12 Urine WBC 2 Urine Squamous Epithelial Cells 1 Urine Amorphous Sediment RARE Urine Hyaline Casts 3 Urine Mucus FEW Microscopic Urinalysis Comment CULT NOT INDICATED Date/Time Source Procedure Growth Status 02/17/18 16:45 Blood Peripheral Aerobic Blood Culture Pending Received 02/17/18 16:45 Blood Peripheral Anaerobic Blood Culture Pending Received Result Diagram: 02/17/18 1500 02/17/18 1500 Caprinlily VTE Risk Assessment Caprini VTE Risk Assessment: Mod/High Risk (score >= 2) Caprini Risk Assessment Model Point Value = 1 Point Value = 2 Point Value = 3 Point Value = 5 Age 41-60 Minor surgery BMI > 25 kg/m2 Swollen legs Varicose veins or History of unexplained or recurrent spontaneous Oral contraceptives or hormone replacement Sepsis (< 1 month) Serious lung disease, including pneumonia (< 1 month) Abnormal pulmonary function Acute myocardial infarction Congestive heart failure (< 1 month) History of inflammatory bowel disease Medical patient at bed rest Age 61-74 Arthroscopic surgery Major open surgery (> 45 min) Laparoscopic surgery (> 45 min) Malignancy Confined to bed (> 72 hours) Immobilizing plaster cast Central venous access Age >= 75 History of VTE Family history of VTE Factor V Leiden Prothrombin [id number] Lupus anticoagulant Anticardiolipin antibodies Elevated serum homocysteine Heparin-induced thrombocytopenia Other congenital or acquired thrombophilia Stroke (< 1 month) Elective arthroplasty Hip, pelvis, or leg fracture Acute spinal cord injury (< 1 month) Prophylaxis Regimen Total Risk Factor Score Risk Level Prophylaxis Regimen 0-1 Low Early ambulation 2 Moderate Order ONE of the following: *Sequential Compression Device (SCD) *Heparin 5000 units SQ BID 3-4 Higher Order ONE of the following medications: *Heparin 5000 units SQ TID *Enoxaparin/Lovenox 40 mg SQ daily (WT < 150 kg, CrCl > 30 mL/min) *Enoxaparin/Lovenox 30 mg SQ daily (WT < 150 kg, CrCl > 10-29 mL/min) *Enoxaparin/Lovenox 30 mg SQ BID (WT < 150 kg, CrCl > 30 mL/min) AND/OR *Sequential Compression Device (SCD) 5 or more Highest Order ONE of the following medications: *Heparin 5000 units SQ TID (Preferred with Epidurals) *Enoxaparin/Lovenox 40 mg SQ daily (WT < 150 kg, CrCl > 30 mL/min) *Enoxaparin/Lovenox 30 mg SQ daily (WT < 150 kg, CrCl > 10-29 mL/min) *Enoxaparin/Lovenox 30 mg SQ BID (WT < 150 kg, CrCl > 30 mL/min) AND *Sequential Compression Device (SCD) Assessment and Plan Assessment and Plan Assessment/plan: 1. Shortness of breath/pneumonia/pleural effusion Chest x-ray significant for left-sided pleural effusion with consolidation at the left lung base, personally reviewed D-dimer elevated at 6.66 VQ scan showed diminished ventilation and perfusion involving the left lung base that correlates with the effusion noted on chest x-ray. Spoke with the radiologist who states risk for PE cannot be determined definitively given the presence of a pleural effusion. Patient had bilateral lower extremity venous Doppler performed recently which was negative for DVT CTA unable to be performed given patient's acute on chronic renal insufficiency Patient is not tachycardic or hypoxic and denies chest pain. Shortness of breath likely related to effusion and pneumonia. If symptoms persist will obtain CTA once renal function improves. Plan discussed with patient and his who agree with holding off on anticoagulation at this time. Rocephin/azithromycin Holding diuresis given acute on chronic renal insufficiency 2. Acute on chronic renal insufficiency BUN/creatinine 51/2.49, baseline creatinine 1.4-1.7 Gentle IV fluid hydration given edema/effusion Monitor renal function 3. Diabetes mellitus Continue home Lantus at reduced dose as patient has had poor p.o. intake Sliding-scale insulin Monitor blood glucose 4. Hypertension/hyperlipidemia Continue home medications 5. Pancreatic cancer Medical oncology consulted, appreciate recommendations Last chemotherapy on Patient scheduled for Whipple procedure at [facility] on 03/26 6. Anemia H&H 8.6/25.8 Patient with history of anemia requiring blood transfusions Monitor and transfuse as needed FEN Diabetic diet Electrolytes: Monitor and replete as needed NS at 84 cc/hour Heparin Physician Certification 2 Midnight Certification Type: Admission for Inpatient Services Order for Inpatient Services The services are ordered in accordance with Medicare regulations or non- Medicare payer requirements, as applicable. In the case of services not specified as inpatient-only, they are appropriately provided as inpatient services in accordance with the 2-midnight benchmark. Estimated LOS (days): 2 2 days is the estimated time the patient will need to remain in the hospital, assuming treatment plan goals are met and no additional complications. Post-Hospital Plan: Not yet determined Claire Sellers MD February 18, 2018 00:45
[2018-02-18] MEDS: SODIUM CHLOR 0.9% 1000 ML INJ 1,000 ML IV SCH ×3 (01:36→21:37)
[2018-02-18 04:00] VITALS: BP 164/70; PULSE 80; RESP 18; TEMP 97.6; O2SAT 94
[2018-02-18] MEDS: HEPARIN SODIUM - SQ 10,000 UNITS/ML VIAL SQ SCH ×3 (06:16→21:20)
[2018-02-18 08:00] VITALS: BP 155/70; PULSE 75; RESP 19; TEMP 98.3; O2SAT 94
[2018-02-18] MEDS: INSULIN ASPART SUPPLEMENTAL SCALE SQ SCH ×4 (08:00→21:19)
[2018-02-18] MEDS: SODIUM CHLORIDE 0.9% FLUSH 10 ML FLUSH IV FLUSH SCH ×2 (09:00→21:20)
[2018-02-18] MEDS: GABAPENTIN 100 MG CAP PO SCH ×2 (09:33→21:12)
[2018-02-18] MEDS: cefTRIAXone INJ 2,000 MG in SODIUM CHLORIDE 0.9% INJ 100 ML IV SCH (09:33)
[2018-02-18] MEDS: FAMOTIDINE 20 MG TAB PO SCH ×2 (09:34→21:12)
[2018-02-18] MEDS: NEBIVOLOL 10 MG TAB PO SCH (09:34)
[2018-02-18] MEDS: LIPASE/PROTEASE/AMYLASE (12,000/38,000/60,000) CAP PO SCH ×3 (09:34→18:08)
[2018-02-18] MEDS: PRAVASTATIN SOD 40 MG TAB PO SCH (09:34)
[2018-02-18] MEDS: ASPIRIN EC 81 MG TABEC PO SCH (09:34)
--- NOTE | 2018-02-18 09:41 | EKG ---
Date Performed: 02/17/2018 Time Performed: 16:34:27 PTAGE: 72 years EKG: Sinus rhythm BORDERLINE LEFT AXIS DEVIATION MODERATE INTRAVENTRICULAR CONDUCTION DELAY BORDERLINE ECG Since the PREVIOUS TRACING , no significant change noted PREVIOUS TRACIN11/26/2017 00.47 DOCTOR: Karon Jay Interpretating Date/Time 02/18/2018 09:39:40
[2018-02-18] MEDS: AZITHROMYCIN INJ 500 MG in SODIUM CHLOR 0.9% 250 ML INJ 250 ML IV SCH (11:37)
[2018-02-18 12:00] VITALS: BP 145/72; PULSE 68; RESP 18; TEMP 97.2; O2SAT 98
--- NOTE | 2018-02-18 15:51 | HHI.PR ---
Addendum to Inpatient Note Addendum Reason: Additional Documentation Additional Information Pt states that his SOB is improved since being in the hospital. Denies any pain , feels tired. Still has chills but per he has been getting chills since being on chemo. His oncologist is Dr. Todd. Pt does have a poor appetite per . would like to make sure pt's creon is given w food 1. Shortness of breath/pneumonia/pleural effusion Chest x-ray significant for left-sided pleural effusion with consolidation at the left lung base D-dimer elevated at 6.66. VQ scan showed diminished ventilation and perfusion involving the left lung base that correlates with the effusion noted on chest x- ray. Spoke with the radiologist who states risk for PE cannot be determined definitively given the presence of a pleural effusion. Patient had bilateral lower extremity venous Doppler performed recently which was negative for DVT CTA unable to be performed given patient's acute on chronic renal insufficiency Patient is not tachycardic or hypoxic and denies chest pain. SOB is improving since admission. hold off on full anticoagulation for now. Shortness of breath likely related to effusion and pneumonia. on Rocephin/azithromycin. I did consult ID for assistance w abx use as pt on chemotherapy. Holding diuresis given acute on chronic renal insufficiency 2. Acute on chronic renal insufficiency BUN/creatinine 51/2.49, baseline creatinine 1.4-1.7 Gentle IV fluid hydration given edema/effusion Monitor renal function 3. Diabetes mellitus Continue home Lantus at reduced dose as patient has had poor p.o. intake Sliding-scale insulin Monitor blood glucose 4. Hypertension/hyperlipidemia Continue home medications 5. Pancreatic cancer Medical oncology consulted, appreciate recommendations Last chemotherapy on Patient scheduled for Whipple procedure at [facility] on 03/26 6. Anemia H&H 8.6/25.8 Patient with history of anemia requiring blood transfusions Monitor and transfuse as needed Carmen Holcomb MD February 18, 2018 15:51
[2018-02-18 16:00] VITALS: BP 140/74; PULSE 64; RESP 19; TEMP 97.4; O2SAT 96
--- NOTE | 2018-02-18 17:27 | PD.ID.CON ---
History of Present Illness Service Infectious disease Consult Requested By Hospitalist service Reason for Consult Evaluation and management of pneumonia Primary Care Physician Kelly North MD Diagnoses: History of Present Illness Patient seen and examined with Dr. Barnes This is a 72-year-old male with a past medical history significant for pancreatic cancer recently diagnosed 11/07/17 undergoing chemotherapy treatment, insulin dependent diabetes mellitus, chronic kidney disease stage III, hypertension and hyperlipidemia who presents the emergency department for evaluation of shortness of breath. The patient's last chemotherapy was done last . He states he has been tolerating the treatment well. He is scheduled to undergo surgical intervention at [facility] in March. He reports that either early Saturday he began to have significant shortness of breath that has progressively worsened with associated fever, chills, night sweats and dry cough. He also endorses significant fatigue since . He has a history of anemia requiring blood transfusions with last transfusion being approximately 2 weeks ago. He denies any chest pain. He complains of bilateral lower extremity edema. He denies any nausea, vomiting, abdominal pain or diarrhea. He reports some tingling in the digits of both hands since beginning chemotherapy. He denies any previous hospitalizations since beginning his chemotherapy except for fever he developed the first night after initiation of his treatment. He reports prior episode of pneumonia in his 20s. In the ED, chest xray reveals interval development of left-sided pleural effusion and consolidation at the left lung base. He had temperature of 100.3 and slightly elevated white count of 11.5. His CBC was also significant for anemia with hgb/hct 8.6/25.8 and low platelet count of 120. Chemistry panel revealed low bicarb level of 19.5, creatinine of 2.49 and glucose of 274. Patient had an V/Q scan that was intermediate for PE. Infection disease consultation has been requested for evaluation and management of pneumonia. At present, patient states he feels a little better already. He was able to get up and ambulate to the bathroom without any dyspnea which he was experiencing earlier. (Darlyn Peterson) Review of Systems Except as stated in HPI: all other systems reviewed are Neg (Darlyn Peterson) Past Family Social History Allergies: Coded Allergies: No Known Allergies (Unverified Allergy, Unknown, 02/17/18) Past Medical History Pancreatic cancer diagnosed Nov 07 on chemotherapyr Diabetes mellitus, insulin dependent Chronic kidney disease stage III Hypertension Hyperlipidemia Neuropathy Past Surgical History Port placement Left knee arthroscopy Tonsillectomy Reported Medications Abraxane Inj (Paclitaxel/Albumin) 100 Mg Inj Gemcitabine Inj 200 Mg/5.26 Ml (38 Mg/Ml) Inj Lorazepam 0.5 Mg Tab 0.5 Mg PO BID PRN Creon (Pancrelipase) 36,000-114,000-180,000 Units Cap 1 Cap PO TIDPC Prochlorperazine Maleate 10 Mg Tab 10 Mg PO Q6H PRN Ondansetron (Ondansetron HCl) 8 Mg Tab 8 Mg PO TID Aspirin 81 (Aspirin) 81 Mg Tabdr 81 Mg PO DAILY Krill Oil 500 Mg Capsule 350 Mg PO DAILY Mupirocin Topical (Mupirocin) 2 % Oint 1 Applic TOPICAL BID Lisinopril 40 Mg Tab 40 Mg PO DAILY Simvastatin 20 Mg Tab 20 Mg PO DAILY Humalog Inj (Insulin Human Lispro) 1,000 Unit/10 Ml Vial 25-30 Units SQ ACHS Max dose at bedtime:( )units; sugars < 70,(0)units; sugars 150-199,(5)units; sugars 200-249,(10)units; sugars 250-299,(15)units; sugars 300-349,(20)units; sugars more than 349,(25)units. Lantus Solostar Pen Inj (Insulin Glargine) 300 Unit/3 Ml Pen 30-40 Units SQ DAILY Ranitidine (Ranitidine HCl) 150 Mg Tab 150 Mg PO BID Vitamin D3 (Cholecalciferol) 1,000 Unit Tab 2,000 Units PO DAILY Mapap (Acetaminophen) 500 Mg Tab 500 Mg PO BID Co Q 10 (Coenzyme Q10 (Ubidecarenone)) 10 Mg Cap 10 Mg PO DAILY Gabapentin 100 Mg Cap 100 Mg PO BID Bystolic (Nebivolol) 10 Mg Tab 10 Mg PO DAILY Active Ordered Medications Current Medications Medications (Trade) Dose Ordered Sig/Danial Route Start Time Stop Time Status Last Admin (NS Flush) 2 ml UNSCH PRN IV FLUSH 02/17/18 17:45 (NS Flush) 2 ml BID IV FLUSH 02/17/18 21:00 02/17/18 22:43 (Tylenol) 650 mg Q4H PRN PO 02/17/18 17:45 (Zofran Odt) 4 mg Q6H PRN PO 02/17/18 18:15 (Narcan Inj) 0.4 mg UNSCH PRN IV PUSH 02/17/18 17:45 (Milk Of Magnesia Liq) 30 ml Q12H PRN PO 02/17/18 17:45 (Senokot) 17.2 mg Q12H PRN PO 02/17/18 17:45 (Dulcolax Supp) 10 mg DAILY PRN RECTAL 02/17/18 17:45 (Lactulose Liq) 30 ml DAILY PRN PO 02/17/18 17:45 (Percocet 7.5-325 Mg) 1 tab Q6H PRN PO 02/17/18 17:45 (Morphine Inj) 4 mg Q3H PRN IV PUSH 02/17/18 17:45 Ceftriaxone Sodium 2000 mg/ Sodium Chloride 100 ml @ 200 mls/hr Q24H IV 02/18/18 09:00 02/18/18 09:33 Azithromycin 500 mg/Sodium Chloride 250 ml @ 250 mls/hr Q24H IV 02/18/18 10:00 02/18/18 11:37 (D50w (Vial) Inj) 50 ml UNSCH PRN IV PUSH 02/17/18 20:15 (Glucagon Inj) 1 mg UNSCH PRN OTHER 02/17/18 20:15 (NovoLOG SUPPLEMENTAL SCALE) 1 ACHS SLIDING SCALE SQ 02/17/18 21:00 02/18/18 11:39 (Ecotrin Ec) 81 mg DAILY PO 02/18/18 09:00 02/18/18 09:34 (Neurontin) 100 mg BID PO 02/17/18 21:00 02/18/18 09:33 (Ativan) 0.5 mg BID PRN PO 02/17/18 20:15 (Bystolic) 10 mg DAILY PO 02/18/18 09:00 02/18/18 09:34 (Pravachol) 40 mg DAILY PO 02/18/18 09:00 02/18/18 09:34 (Levemir Inj) 20 units HS SQ 02/17/18 21:00 02/17/18 22:41 Sodium Chloride 1,000 ml @ 84 mls/hr [id number] IV 02/18/18 00:30 02/18/18 01:36 (Heparin Inj) 5,000 units Q8HR SQ 02/18/18 06:00 02/18/18 06:16 (Pepcid) 10 mg BID PO 02/18/18 21:00 (Creon 12-38-60) 3 cap TIDAC PO 02/18/18 17:00 Family History DM Social History Patient has a history of tobacco use but quit 6 years ago. He denies any EtOH use or illicit drug use. He is and lives with his and 2 dogs. (Darlyn Peterson) Physical Exam Vital Signs Vital Signs Date Time Temp Pulse Resp B/P (MAP) Pulse Ox O2 Delivery O2 Flow Rate FiO2 02/18/18 16:00 97.4 64 19 140/74 (96) 96 02/18/18 12:00 97.2 68 18 145/72 (96) 98 02/18/18 08:00 98.3 75 19 155/70 (98) 94 02/18/18 04:00 97.6 80 18 164/70 (101) 94 02/18/18 00:00 100.3 86 18 162/70 (100) 93 02/17/18 22:15 162/62 (95) 02/17/18 20:00 97.4 82 22 186/86 (119) 96 02/17/18 17:48 99 21 02/17/18 17:26 80 18 189/78 (115) 98 Room Air Physical Exam GENERAL: This is a well-nourished, well-developed male patient, in no apparent distress. Awake and alert. SKIN: Warm and dry. (+)Fungal lesion on plantar surface of right foot. +port left anterior chest wall, site without any e/o infection. HEAD: Atraumatic. Normocephalic. No temporal or scalp tenderness. EYES: Pupils equal round and reactive. Extraocular motions intact. No scleral icterus. No injection or drainage. ENT: Nose without bleeding or purulent drainage. Throat without erythema, tonsillar hypertrophy or exudate. Uvula midline. Airway patent. NECK: Trachea midline. No lymphadenopathy. Supple, nontender, no meningeal signs. CARDIOVASCULAR: Regular rate and rhythm without murmurs, gallops, or rubs. RESPIRATORY: Nonlabored. Diminished in bases bilaterally. Breath sounds equal bilaterally. No wheezes, rales, or rhonchi. GASTROINTESTINAL: Abdomen soft, non-tender, nondistended. No hepato-splenomegaly , or palpable masses. No guarding. MUSCULOSKELETAL: Extremities without clubbing or cyanosis. 1+ BLE edema noted. No joint tenderness, effusion, or edema noted. No calf tenderness. NEUROLOGICAL: Awake and alert. Cranial nerves II through XII grossly intact. Motor and sensory grossly within normal limits. No focal neurologic findings appreciated. Normal speech. PSYCHIATRIC: Calm and cooperative. Laboratory Date/Time Source Procedure Growth Status 02/17/18 16:45 Blood Peripheral Aerobic Blood Culture - Preliminary NO GROWTH IN 1 DAY Resulted 02/17/18 16:45 Blood Peripheral Anaerobic Blood Culture - Preliminary NO GROWTH IN 1 DAY Resulted (Darlyn Peterson) Result Diagram: 02/17/18 1500 02/17/18 1500 Imaging Last Impressions Lung Scan-VQ Nuclear Medicine 02/17/18 1650 Signed Impressions: Service Date/Time: Saturday, February 17, 2018 18:17 - CONCLUSION: Indeterminate scan for pulmonary embolism Tad Pritchard MD Chest X-Ray 02/17/18 1516 Signed Impressions: Service Date/Time: Saturday, February 17, 2018 15:29 - CONCLUSION: 1. Interval development of left-sided pleural effusion and consolidation at the left lung base. Javier Garrison MD (Darlyn Peterson) Assessment and Plan Assessment and Plan Community acquired pneumonia Immunocompromised patient undergoing chemotherapy treatment for pancreatic cancer recently dx'd 11/07/17 Acute on chronic renal failure, stage III Anemia Thrombocytopenia IDDM Diabetic neuropathy Hypertension Right foot fungal infection RECOMMENDATIONS: Continue on IV Azithromycin and IV Ceftriaxone Obtain Legionella antigen Repeat CXR in am Follow up on cultures until finalized monitor respiratory status Follow kidney function. Renally dose medications. Monitor for clinical improvement Further recommendations to follow Discussed Condition With patient, nursing staff (Darlyn Peterson) Assessment and Plan The exam, history, and the medical decision-making described in the above note were completed with the assistance of the mid-level provider. I reviewed and agree with the findings presented. I attest that I had a [id number] encounter with the patient on the same day, and personally performed and documented my assessment and findings in the medical record. Lives at home with in [place]. Has 2 pet dogs. s/p Chemo last . 1 day after chemotherapy he started developing fevers, chills, sweats. He reports dry cough with shortness of breath. CTA BL Decreased AE bilaterally. Recs Continue Ceftriaxone IV Continue Azithro repeat CXR in am dw (Le Barnes MD) Darlyn Peterson February 18, 2018 17:27 Le Barnes MD February 18, 2018 17:48
[2018-02-18 20:00] VITALS: BP 162/71; PULSE 82; RESP 21; TEMP 97.3; O2SAT 97
--- NOTE | 2018-02-18 20:39 | MB ---
cc: Anjelica Todd MD, Ruby Anne E MD Kirkman,Claire Li MD DATE: 02/18/2018 REFERRING PHYSICIAN: Dr. Claire Sellers. CHIEF COMPLAINT: Dr. Sellers requests a consult for Mr. Barfield with history of potentially resectable pancreatic cancer. HISTORY OF PRESENT ILLNESS: Mr. Barfield is a 72-year-old man with multiple medical problems. He has a history of chronic kidney disease, lumbar stenosis from degenerative disc disease, diabetes type 2, hyperlipidemia, hypertension, and gastroesophageal reflux. He had findings in 11/2017 of a poorly differentiated adenocarcinoma in the head of the pancreas. He is diagnosed with clinical stage IIB, T3 N1 M0 disease with CA 19-9 that is elevated. He was started on neoadjuvant chemotherapy with gemcitabine and Abraxane. He has resolution of disease by CT/PET scan. He has normalization of the CA 19-9. He was referred to a high volume center and is pending a Whipple surgery, which is now scheduled for 03/28. Mr. Barfield has returned from his evaluation in [place]. He, on followup, was found to have a CA 19-9 which is 43. In light of his surgery being a month from now, the plan was discussed with his surgeon to proceed with another cycle of chemotherapy. On 02/13, he had another cycle or dose of gemcitabine and Abraxane. He describes over the weekend having progressive symptoms of fatigue. It took him 10 minutes to put on his shirt and shorts. He had chest pain, shortness of breath, extreme fatigue. He called our clinic office and was referred to the emergency room to rule out pulmonary embolism in light of his symptoms. He is at high risk for pulmonary embolism in light of his pancreatic cancer. VQ scan was indeterminate. His chest x-ray showed interval development of left-sided pleural effusion and consolidation in the left lung base. He is being treated for community-acquired pneumonia. He feels better after initiation of antibiotic therapy. He was found to have mild leukocytosis consistent with infection. His hemoglobin is decreased at 8.6, mostly chemotherapy induced. His platelet count is 120,000. He has a glucose of 274, BUN 51, creatinine 2.49. Beta natriuretic peptide was 230. He is feeling better 24 hours after his admission. He was seen by infectious disease. He is eager about the potential of being able to go home. The rest of his review of systems is negative. PAST MEDICAL HISTORY: Potentially resectable pancreatic cancer, diabetes, chronic kidney disease, hypertension, hyperlipidemia, gastroesophageal reflux disease, peripheral neuropathy. PAST SURGICAL HISTORY: Port placement, left knee arthroscopic surgery, tonsillectomy. FAMILY HISTORY: Both parents had diabetes. SOCIAL HISTORY: Quit smoking 6 years ago. He denies any tobacco, alcohol or illicit drug use. He is , lives with his . ALLERGIES: NO KNOWN DRUG ALLERGIES. MEDICATIONS: 1. Pepcid. 2. Ketoconazole 3. Creon. 4. Azithromycin. 5. Ceftriaxone. 6. Aspirin. 7. Bystolic 8. Pravachol. 9. Gabapentin. PHYSICAL EXAMINATION: VITAL SIGNS: Temperature 97.4, heart rate 64, respiratory rate 19, blood pressure 140/74. GENERAL: Mr. Barfield is a well-developed, well-nourished man. He has some mild pallor. HEENT: Pupils are round, reactive to light and accommodation. Oropharynx is clear. NECK: Supple. LUNGS: With decreased breath sounds in the right base. Crackles in both bases. CARDIOVASCULAR: Reveals normal rate and rhythm. ABDOMEN: Benign. LOWER EXTREMITIES: Lower extremity with no edema. LABORATORY DATA: Labs as described above. ASSESSMENT AND PLAN: Mr. Barfield is a 72-year-old man with multiple medical problems as described above. He has a potentially resectable pancreatic cancer with excellent response to gemcitabine and Abraxane. He had a last cycle of chemotherapy on , the weekend prior to his presentation. He appears to have a community-acquired pneumonia. He is susceptible and at increased risk in light of the relative immunosuppression with chemotherapy treatment. Furthermore, he visited another institution for preop evaluation. We discussed our plans to continue treatment per infectious disease. He has chemotherapy-induced anemia. I defer transfusion at present. He is encouraged to drink fluids. His renal function at baseline is better than what it was on admission. We will repeat a comprehensive metabolic panel tomorrow. I recommend no therapy for the thrombocytosis. Repeat CBC. I anticipate the white cell count will be trending down because of the chemotherapy. His platelet count will be monitored. His next dose of chemotherapy is scheduled for Saturday, 02/21, will be placed on hold in light of the acute infection. We will monitor for symptoms of heart failure. He has elevated BNP. He is at high risk for venous thromboembolic event. I recommend deep vein thrombosis prophylaxis and getting an ultrasound of the lower extremity to rule out a deep vein thromboses. He had recent evaluation for possible vascular reconstruction and ultrasound of his veins from last week which was negative. However, that predates his acute symptoms. Mr. Barfield's questions were answered to his satisfaction. When discharged, he will followup in oncology clinic. MD DEANDRA Borjas/ , 08:11 PM , 08:38 PM
[2018-02-18] MEDS: INSULIN DETEMIR 100 UNITS/ML VIAL SQ SCH (21:18)
[2018-02-18] MEDS: KETOCONAZOLE 2% CREAM 15 GM TOPICAL SCH (21:33)
[2018-02-19] VITALS: BP 157/70; PULSE 82; RESP 19; TEMP 97.3; O2SAT 95
[2018-02-19] MEDS: HEPARIN SODIUM - SQ 10,000 UNITS/ML VIAL SQ SCH ×2 (05:07→14:00)
--- NOTE | 2018-02-19 06:31 | RADRPT ---
EXAM DATE/TIME: 02/19/2018 05:55 [facility] COMPARISON: CHEST SINGLE AP, November 26, 2017, 0:37. INDICATIONS : Shortness of breath. MEDICAL HISTORY : Carcinoma, pancreas. Chemo SURGICAL HISTORY : Total knee replacement, left. ENCOUNTER: Subsequent ACUITY: 1 week PAIN SCORE: 3/10 LOCATION: Bilateral chest FINDINGS: A single portable frontal view of the chest omits portions left lung base. Small left pleural effusio n. Consolidation within both lung bases but more pronounced on the left. These are new from the prior study. Heart is normal in size. Power port overlies the left chest. Calcified granuloma within the l eft upper lobe. CONCLUSION: Small left pleural effusion with bibasilar infiltrates. Darryl Felix Jr., MD on February 19, 2018 at 6:28 Board Certified Radiologist. This report was verified electronically.
[2018-02-19] MEDS: INSULIN ASPART SUPPLEMENTAL SCALE SQ SCH ×3 (07:30→17:00)
[2018-02-19 08:00] VITALS: BP 187/82; PULSE 67; RESP 17; TEMP 97.2; O2SAT 96
[2018-02-19 08:27] LABS: AUTOMATED NEUTROPHIL # 4.7 TH/MM3 (1.8-7.7); BASOPHIL % 0.7 % (0.0-2.0); EOSINOPHIL # 0.1 TH/MM3 (0-0.4); EOSINOPHIL % 2.3 % (0.0-4.0); HEMATOCRIT 24.5 % (39.0-51.0); HEMOGLOBIN 8.2 GM/DL (13.0-17.0); LYMPH % 16.4 % (9.0-44.0); MEAN CELL VOLUME 95.5 FL (80.0-100.0); MEAN CORPUSCULAR HEMOGLOBIN 31.9 PG (27.0-34.0); MEAN CORPUSCULAR HGB CONC 33.4 % (32.0-36.0); MEAN PLATELET VOLUME 9.9 FL (7.0-11.0); MONO % 3.1 % (0.0-8.0); MONOCYTE # 0.2 TH/MM3 (0-0.9); NEUT % 77.5 % (16.0-70.0); PLATELET COUNT 97 TH/MM3 (150-450); RED BLOOD COUNT 2.57 MIL/MM3 (4.50-5.90); RED CELL DISTRIBUTION WIDTH 18.7 % (11.6-17.2)
[2018-02-19] MEDS: FAMOTIDINE 20 MG TAB PO SCH (08:46)
[2018-02-19] MEDS: cefTRIAXone INJ 2,000 MG in SODIUM CHLORIDE 0.9% INJ 100 ML IV SCH (08:46)
[2018-02-19] MEDS: LIPASE/PROTEASE/AMYLASE (12,000/38,000/60,000) CAP PO SCH ×3 (08:46→17:00)
[2018-02-19] MEDS: SODIUM CHLORIDE 0.9% FLUSH 10 ML FLUSH IV FLUSH SCH (08:47)
[2018-02-19] MEDS: NEBIVOLOL 10 MG TAB PO SCH (08:47)
[2018-02-19] MEDS: ASPIRIN EC 81 MG TABEC PO SCH (08:47)
[2018-02-19] MEDS: PRAVASTATIN SOD 40 MG TAB PO SCH (08:47)
[2018-02-19] MEDS: GABAPENTIN 100 MG CAP PO SCH (08:47)
[2018-02-19] MEDS: KETOCONAZOLE 2% CREAM 15 GM TOPICAL SCH (08:52)
[2018-02-19 09:15] LABS: BICARBONATE 22.9 MEQ/L (21.0-32.0); CREATININE 2.08 MG/DL (0.60-1.30)
[2018-02-19 09:26] VITALS: O2SAT 96
--- NOTE | 2018-02-19 09:37 | RADRPT ---
EXAM DATE/TIME: 02/19/2018 08:32 [facility] COMPARISON: No previous studies available for comparison. INDICATIONS : Indeterminite VQ scan. Pancreatic cancer, high risk for deep vein thrombosis. MEDICAL HISTORY : Carcinoma, pancreas. Chemo. SURGICAL HISTORY : Total knee replacement, left. ENCOUNTER: Initial ACUITY: 1 day PAIN SCORE: 1/10 LOCATION: Bilateral leg, TECHNIQUE: Venous ultrasound of the left and right leg was performed from the inguinal ligament to the proximal calf. Real-time, color Doppler and spectral tracing, compression and augmentation techniques were us ed. FINDINGS: RIGHT LEG: There is normal compressibility of the deep venous system from the inguinal region to the proximal ca lf. No echogenic clot is seen in the lumen of the common femoral, femoral, popliteal, and posterior tibial veins. There is a normal response of the venous system to proximal and distal augmentation an d respiration. LEFT LEG: There is normal compressibility of the deep venous system from the inguinal region to the proximal ca lf. No echogenic clot is seen in the lumen of the common femoral, femoral, popliteal, and posterior tibial veins. There is a normal response of the venous system to proximal and distal augmentation an d respiration. CONCLUSION: Negative for deep venous thrombosis. Diego Garrison MD FACR on February 19, 2018 at 9:34 Board Certified Radiologist. This report was verified electronically.
[2018-02-19] MEDS: AZITHROMYCIN INJ 500 MG in SODIUM CHLOR 0.9% 250 ML INJ 250 ML IV SCH (11:08)
[2018-02-19] MEDS: SODIUM CHLOR 0.9% 1000 ML INJ 1,000 ML IV SCH (11:57)
[2018-02-19 12:00] VITALS: PULSE 64; RESP 17; TEMP 98; O2SAT 97
[2018-02-19 12:16] VITALS: BP 158/68
[2018-02-19] MEDS ORDERED: AZIT500T2 PO (13:52)
[2018-02-19] MEDS ORDERED: LACTTAB8 PO (13:53)
--- NOTE | 2018-02-19 14:00 | HHI.IDPN ---
Subjective Subjective Remarks Patient seen and examined with Dr. Barnes This is a 72-year-old male with a past medical history significant for pancreatic cancer recently diagnosed 11/07/17 undergoing chemotherapy treatment, insulin dependent diabetes mellitus, chronic kidney disease stage III, hypertension and hyperlipidemia who presents the emergency department for evaluation of shortness of breath. The patient's last chemotherapy was done last . He states he has been tolerating the treatment well. He is scheduled to undergo surgical intervention at [facility] in March. He reports that either early Saturday he began to have significant shortness of breath that has progressively worsened with associated fever, chills, night sweats and dry cough. He also endorses significant fatigue since . He has a history of anemia requiring blood transfusions with last transfusion being approximately 2 weeks ago. He denies any chest pain. He complains of bilateral lower extremity edema. He denies any nausea, vomiting, abdominal pain or diarrhea. He reports some tingling in the digits of both hands since beginning chemotherapy. He denies any previous hospitalizations since beginning his chemotherapy except for fever he developed the first night after initiation of his treatment. He reports prior episode of pneumonia in his 20s. In the ED, chest xray reveals interval development of left-sided pleural effusion and consolidation at the left lung base. He had temperature of 100.3 and slightly elevated white count of 11.5. His CBC was also significant for anemia with hgb/hct 8.6/25.8 and low platelet count of 120. Chemistry panel revealed low bicarb level of 19.5, creatinine of 2.49 and glucose of 274. Patient had an V/Q scan that was intermediate for PE. Infection disease consultation has been requested for evaluation and management of pneumonia. At present, patient states he feels a little better already. He was able to get up and ambulate to the bathroom without any dyspnea which he was experiencing earlier. Notes reviewed patient reports he feels improved no cough or sputum production no fever or chills no rash no diarrhea afebrile WBC dropped to 6.0 CXR shows small left pleural effusion with bibasilar infiltrates Doppler neg for DVT Antibiotics IV Ceftriaxone IV Azithromycin Lines PIV with no e/o infection Past Medical History Pancreatic cancer diagnosed Nov 07 on chemotherapyr Diabetes mellitus, insulin dependent Chronic kidney disease stage III Hypertension Hyperlipidemia Neuropathy (Darlyn Peterson) Allergies: Coded Allergies: No Known Allergies (Unverified Allergy, Unknown, 02/17/18) Objective . Vital Signs Date Time Temp Pulse Resp B/P (MAP) Pulse Ox O2 Delivery O2 Flow Rate FiO2 02/19/18 12:16 158/68 (98) 02/19/18 12:00 98.0 64 17 97 02/19/18 09:26 96 21 02/19/18 08:00 97.2 67 17 187/82 (117) 96 02/19/18 00:00 97.3 82 19 157/70 (99) 95 02/18/18 20:00 97.3 82 21 162/71 (101) 97 02/18/18 16:00 97.4 64 19 140/74 (96) 96 . Laboratory Tests Test 02/17/18 15:00 02/19/18 07:57 White Blood Count 11.5 TH/MM3 6.0 TH/MM3 Red Blood Count 2.68 MIL/MM3 2.57 MIL/MM3 Hemoglobin 8.6 GM/DL 8.2 GM/DL Hematocrit 25.8 % 24.5 % Mean Corpuscular Volume 96.3 FL 95.5 FL Mean Corpuscular Hemoglobin 32.0 PG 31.9 PG Mean Corpuscular Hemoglobin Concent 33.2 % 33.4 % Red Cell Distribution Width 19.3 % 18.7 % Platelet Count 120 TH/MM3 97 TH/MM3 Mean Platelet Volume 10.8 FL 9.9 FL Neutrophils (%) (Auto) 94.3 % 77.5 % Lymphocytes (%) (Auto) 4.5 % 16.4 % Monocytes (%) (Auto) 0.8 % 3.1 % Eosinophils (%) (Auto) 0.2 % 2.3 % Basophils (%) (Auto) 0.2 % 0.7 % Neutrophils # (Auto) 10.8 TH/MM3 4.7 TH/MM3 Lymphocytes # (Auto) 0.5 TH/MM3 1.0 TH/MM3 Monocytes # (Auto) 0.1 TH/MM3 0.2 TH/MM3 Eosinophils # (Auto) 0.0 TH/MM3 0.1 TH/MM3 Basophils # (Auto) 0.0 TH/MM3 0.0 TH/MM3 CBC Comment DIFF FINAL AUTO DIFF Differential Comment AUTO DIFF CONFIRMED Laboratory Tests Test 02/17/18 15:00 02/19/18 07:57 Blood Urea Nitrogen 51 MG/DL 39 MG/DL Creatinine 2.49 MG/DL 2.08 MG/DL Random Glucose 274 MG/DL 65 MG/DL Total Protein 5.7 GM/DL Albumin 2.0 GM/DL Calcium Level 8.0 MG/DL 8.0 MG/DL Magnesium Level 2.1 MG/DL Alkaline Phosphatase 95 U/L Aspartate Amino Transf (AST/SGOT) 36 U/L Alanine Aminotransferase (ALT/SGPT) 24 U/L Total Bilirubin 1.0 MG/DL Sodium Level 136 MEQ/L 141 MEQ/L Potassium Level 4.3 MEQ/L 3.6 MEQ/L Chloride Level 104 MEQ/L 110 MEQ/L Carbon Dioxide Level 19.5 MEQ/L 22.9 MEQ/L Anion Gap 13 MEQ/L 8 MEQ/L Estimat Glomerular Filtration Rate 26 ML/MIN 31 ML/MIN Total Creatine Kinase 64 U/L Troponin I LESS THAN 0.02 NG/ML B-Type Natriuretic Peptide 230 PG/ML Microbiology Date/Time Source Procedure Growth Status 02/17/18 16:45 Blood Peripheral Aerobic Blood Culture - Preliminary NO GROWTH IN 2 DAYS Resulted 02/17/18 16:45 Blood Peripheral Anaerobic Blood Culture - Preliminary NO GROWTH IN 2 DAYS Resulted 02/17/18 16:40 Blood Peripheral Aerobic Blood Culture - Preliminary NO GROWTH IN 2 DAYS Resulted 02/17/18 16:40 Blood Peripheral Anaerobic Blood Culture - Preliminary NO GROWTH IN 2 DAYS Resulted 02/18/18 18:45 Urine Catheterized Urine Legionella Antigen - Final PRESUMPTIVE NEGATIVE FOR LEGIONELLA P... Complete Imaging Last Impressions Lower Extremity Ultrasound 02/19/18 06 Signed Impressions: Service Date/Time: Monday, February 19, 2018 08:32 - CONCLUSION: Negative for deep venous thrombosis. Diego Garrison MD FACR Chest X-Ray 02/19/18 0600 Signed Impressions: Service Date/Time: Monday, February 19, 2018 05:55 - CONCLUSION: Small left pleural effusion with bibasilar infiltrates. Darryl Felix Jr., MD Lung Scan- Nuclear Medicine 02/17/18 1650 Signed Impressions: Service Date/Time: Saturday, February 17, 2018 18:17 - CONCLUSION: Indeterminate scan for pulmonary embolism Tad Pritchard MD Physical Exam GENERAL: This is a well-nourished, well-developed male patient, in no apparent distress. Awake and alert. is at the bedside. SKIN: Warm and dry. (+)Fungal lesion on plantar surface of right foot. +port left anterior chest wall, site without any e/o infection. HEAD: Atraumatic. Normocephalic. No temporal or scalp tenderness. EYES: Pupils equal round and reactive. Extraocular motions intact. No scleral icterus. No injection or drainage. ENT: Nose without bleeding or purulent drainage. Throat without erythema, tonsillar hypertrophy or exudate. Uvula midline. Airway patent. NECK: Trachea midline. No lymphadenopathy. Supple, nontender, no meningeal signs. CARDIOVASCULAR: Regular rate and rhythm without murmurs, gallops, or rubs. RESPIRATORY: Nonlabored. Few bibasilar crackles noted on exam. Breath sounds equal bilaterally. No wheezes, rales, or rhonchi. GASTROINTESTINAL: Abdomen soft, non-tender, nondistended. No hepato-splenomegaly , or palpable masses. No guarding. MUSCULOSKELETAL: Extremities without clubbing or cyanosis. 1+ BLE edema noted. No joint tenderness, effusion, or edema noted. No calf tenderness. NEUROLOGICAL: Awake and alert. Cranial nerves II through XII grossly intact. Motor and sensory grossly within normal limits. No focal neurologic findings appreciated. Normal speech. PSYCHIATRIC: Calm and cooperative. (Darlyn Peterson) Assessment & Plan Remarks Community acquired pneumonia -few bibasilar crackles on exam suspect mild fluid overload Immunocompromised patient undergoing chemotherapy treatment for pancreatic cancer recently dx'd 11/07/17 Acute on chronic renal failure, stage III Anemia Thrombocytopenia IDDM Diabetic neuropathy Hypertension Right foot fungal infection RECOMMENDATIONS: Cleared for discharge from ID standpoint on Azithromycin 500mg daily x 5 days Patient has follow up appt with Dr. Todd this Saturday - discussed as much with patient and at the bedside. Dw patient and who were appreciative of care (Darlyn Peterson) Remarks The exam, history, and the medical decision-making described in the above note were completed with the assistance of the mid-level provider. I reviewed and agree with the findings presented. I attest that I had a [id number] encounter with the patient on the same day, and personally performed and documented my assessment and findings in the medical record. Bibasilar mild crackles Feels better wishes to go home dw ok to pr home dw : dc home on Azithro for 5 days and Lactobacillus for 1 month. Will sign off please call back if any change in clinical condition or questions. (Le Barnes MD) Darlyn Peterson February 19, 2018 14:00 Le Barnes MD February 19, 2018 14:09
[2018-02-19] MEDS ORDERED: amLODIPine BESYLATE 5 MG TAB PO SCH (14:15)
[2018-02-19] MEDS ORDERED: AMLO5 PO (14:43)
--- NOTE | 2018-02-19 14:52 | HHI.PR ---
Subjective Remarks Pt feeling a lot better. Denies any CP/SOB much improved, no nausea or vomiting Objective Vitals Vital Signs Date Time Temp Pulse Resp B/P (MAP) Pulse Ox O2 Delivery O2 Flow Rate FiO2 02/19/18 12:16 158/68 (98) 02/19/18 12:00 98.0 64 17 97 02/19/18 09:26 96 21 02/19/18 08:00 97.2 67 17 187/82 (117) 96 02/19/18 00:00 97.3 82 19 157/70 (99) 95 02/18/18 20:00 97.3 82 21 162/71 (101) 97 02/18/18 16:00 97.4 64 19 140/74 (96) 96 I/O 02/18/18 02/18/18 02/18/18 02/19/18 02/19/18 02/19/18 07:00 15:00 23:00 07:00 15:00 23:00 Intake Total 1100 ml 600 ml Balance 1100 ml 600 ml Intake Oral 1100 ml 600 ml # Voids 3 8 2 Result Diagram: 02/19/18 0757 02/19/18 0757 Imaging Last Impressions Lower Extremity Ultrasound 02/19/18 06 Signed Impressions: Service Date/Time: Monday, February 19, 2018 08:32 - CONCLUSION: Negative for deep venous thrombosis. Diego Garrison MD FACR Chest X-Ray 02/19/18 0600 Signed Impressions: Service Date/Time: Monday, February 19, 2018 05:55 - CONCLUSION: Small left pleural effusion with bibasilar infiltrates. Darryl Felix Jr., MD Lung Scan- Nuclear Medicine 02/17/18 1650 Signed Impressions: Service Date/Time: Saturday, February 17, 2018 18:17 - CONCLUSION: Indeterminate scan for pulmonary embolism Tad Pritchard MD Objective Remarks GENERAL: male laying in bed, appears comfortable CARDIOVASCULAR: Regular rate and rhythm without murmurs RESPIRATORY: Clear to auscultation. Breath sounds equal bilaterally. No wheezes GASTROINTESTINAL: Abdomen soft, non-tender, nondistended. MUSCULOSKELETAL: moves ext A/P Assessment and Plan 1. Shortness of breath/pneumonia/pleural effusion Chest x-ray significant for left-sided pleural effusion with consolidation at the left lung base D-dimer elevated at 6.66. VQ scan showed diminished ventilation and perfusion involving the left lung base that correlates with the effusion noted on chest x- ray. read as indeterminate. Lower ext dopple neg for DVT. Discussed w Dr. Todd, since pt clinically improved w Abx, SOB most likely from infection. At this time, we will not start any anticoagulation, encouraged pt to ambulate adlib at home. Discussed w ID and recommends dc home on Azithro for 5 days and Lactobacillus for 1 month. Pt was treated w Rocephin/azithromycin while in the hospital. 2. Acute on chronic renal insufficiency/Hypertension creatinine 2.49-->2.08, baseline creatinine 1.4-1.7 Gentle IV fluid hydration given edema/effusion Monitor renal function as an outpatient. Improving. home lisinopril was held due to rise in Cr level. Pt started on amlodiping 5mg po daily. Monitor BP's and Cr levels as an outpatient. 3. Diabetes mellitus Continue home Lantus at reduced dose as patient has had poor p.o. intake Sliding-scale insulin Monitor blood glucose 4. Pancreatic cancer Last chemotherapy on Patient scheduled for Whipple procedure at [facility] on 03/26 Dr Todd evaluated the pt and will hold chemo scheduled for this saturday but will see pt as an outpatient for f/u that day if needed. 5. Anemia H&H 8.6/25.8 Patient with history of anemia requiring blood transfusions no need for transfusion at this time. Discharge Planning ok to d/c home today scripts in chart f/u w Dr. Todd on saturday f/u w PCP in 1 week activity adlib heart healthy/DM Carmen Yang MD February 19, 2018 14:51
== END 2018-02-19 17:16 | disposition home or self-care (01) | DRG 194 ==
LOC: NEPE 14:26 → NEDA 17:41 → N07B 19:28
PROVIDERS: ADMIT Hospitalist; ATTEND Hospitalist
DX: J18.9 Pneumonia, unspecified organism (principal); N17.9 Acute kidney failure, unspecified; E11.22 Type 2 diabetes mellitus with diabetic chronic kidney disease; E11.40 Type 2 diabetes mellitus with diabetic neuropathy, unspecified; D69.6 Thrombocytopenia, unspecified; J90 Pleural effusion, not elsewhere classified; C25.0 Malignant neoplasm of head of pancreas; E87.70 Fluid overload, unspecified; N18.3 Chronic kidney disease, stage 3 (moderate); T45.1X5A Adverse effect of antineoplastic and immunosuppressive drugs, initial encounter; D64.81 Anemia due to antineoplastic chemotherapy; E78.5 Hyperlipidemia, unspecified; I12.9 Hypertensive chronic kidney disease with stage 1 through stage 4 chronic kidney disease, or unspecified chronic kidney disease; R60.0 Localized edema; M51.36 Other intervertebral disc degeneration, lumbar region; K21.9 Gastro-esophageal reflux disease without esophagitis; B35.3 Tinea pedis; Z79.4 Long term (current) use of insulin; Z83.3 Family history of diabetes mellitus; Z87.891 Personal history of nicotine dependence
CPT/HCPCS: 71045; 71046; 78582; 80048; 80053; 81001; 82550; 82948; 83735; 83880; 84484; 85025; 85379; 85610; 85730; 87040; 87449; 93005; 93970; 94150; 96365; A9540; A9567; J0456; J0696; J1644; J1815; J7030; J7050

== ENCOUNTER 2018-02-22 19:55 | Emergency (ER) | END 2018-02-23 04:56 | disposition home or self-care (01) | DX: R06.02 Shortness of breath (principal); R94.31 Abnormal electrocardiogram [ECG] [EKG]; C25.9 Malignant neoplasm of pancreas, unspecified; R60.0 Localized edema; D64.9 Anemia, unspecified; E11.9 Type 2 diabetes mellitus without complications; I10 Essential (primary) hypertension; Z79.4 Long term (current) use of insulin; Z79.82 Long term (current) use of aspirin | CPT/HCPCS: 71046; 78582; 80053; 82550; 83605; 83735; 83880; 84484; 85007; 85027; 85610; 85730; 86850; 86900; 86901; 87040; 93005; 99285; A9540; A9567 ==